=== PATIENT | female | born 2000 | race Caucasian/White ===

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

== ENCOUNTER 2022-01-11 19:15 | Emergency (ER) | payer OTHER ==
[~2022-01-11] VITALS: Ht 157.5 cm; Wt 63.5 kg
[2022-01-11 19:22] VITALS: BP 108/74
== END 2022-01-11 22:47 | disposition left against medical advice (07) ==
LOC: M.ERS 19:15
DX: R10.11 Right upper quadrant pain (principal); R19.7 Diarrhea, unspecified; Z53.21 Procedure and treatment not carried out due to patient leaving prior to being seen by health care provider; Z87.442 Personal history of urinary calculi